=== PATIENT | male | born 1995 | race Asian ===

== ENCOUNTER 2023-08-17 06:21 | Emergency (ER) | payer OTHER, SELFPAY ==
[2023-08-17 06:33] VITALS: BP 122/78; PULSE 100; RESP 16; TEMP 36.4; O2SAT 98; BMI 27.4
[2023-08-17] MEDS: KETOROLAC 10 MG TABLET PO (07:02)
[2023-08-17] MEDS: FAMOTIDINE 20 MG TABLET PO (07:02)
[2023-08-17] MEDS: ONDANSETRON ODT 4 MG TAB PO (07:03)
--- NOTE | 2023-08-17 07:04 | ED_ITS ---
HPI - General Adult General Chief complaint: Abdominal Pain Stated complaint: lower abdominal pain Time Seen by Provider: 08/17/23 06:46 Source: patient Mode of arrival: ambulatory Limitations: no limitations History of Present Illness HPI narrative: 28-year-old male presents the emergency department with intermittent right upper quadrant and left lower quadrant abdominal pain for the past 3 days. Tends to happen while sitting and riding in a car. He has a son in the NICU at [place] and they have been traveling back frequently for visits. He had vomiting this morning but has been mildly nauseated the past couple of days. He has ongoing heartburn and has been a little worse than usual the last couple of days. He has been having some loose stools. Last bowel movement was last night. No eldon diarrhea. No bloody stools. No injury or trauma. Has not tried taking any medication to help with his symptoms. No fevers. No sick contacts. No prior history of abdominal surgeries. No cardiac or respiratory symptoms. No rash. No dysuria or hematuria. Past medical history benign per his report besides some exercise-induced asthma. He has albuterol as needed for this. No allergies. No prior abdominal surgeries. Nonsmoker. ROS notable for the GI/musculoskeletal symptoms as described above, otherwise denies times 12 systems. Related Data Home Medications Medication Instructions Recorded Confirmed albuterol 90 mcg/actuation aerosol mcg inhalation 08/17/23 inhaler Previous Rx's Medication Instructions Recorded ondansetron 4 mg disintegrating 4 mg PO Q8H PRN nausea and 08/17/23 tablet vomiting #14 tabs Allergies Allergy/AdvReac Type Severity Reaction Status Date / Time No Known Drug Allergies Allergy Verified 08/17/23 06:37 Exam Const: Vital Signs, click to edit/add: Vital Signs - 24 hr 08/17/23 06:33 Temperature 97.6 F Pulse Rate [Left P ulse Oximeter] 100 Respiratory Rate 16 Blood Pressure [Ri ght Upper Arm] 122/78 Pulse Oximetry 98 Oxygen Delivery Me thod Room Air Documenting provider has reviewed patient's vital signs: yes Common norm als: no apparent distress and alert General appearance: cooperative and well kempt HENMT: Common normals: normocephalic and oropharynx normal Head and scalp: normocephalic Face and sinus: normal facial exam Mouth: oral and palatal mucosa normal Eye: Common normals: conjunctivae normal General eye: normal appearance of both eyes Conjunctiva: conjunctiva(e) normal Neck & C-Spine: Common normals: full ROM and no lymphadenopathy Resp: Common normals: normal respiratory effort, no use of accessory muscles and clear to auscultation bilaterally Effort & inspection: able to speak in c omplete sentences Auscultation: clear to auscultation bilaterally Cardio: Common normals: regular rate, regular rhythm, S1 normal heart sound, S2 normal heart sound and peripheral pulses 2+ throughout Rate: regular rate Rhythm: regular rhythm Heart sounds: S1 normal and S2 normal Peripheral pulses: pulses 2+ throughout GI: Common normals: Normal to inspection, nondistended, normoactive bowel sounds present, soft to palpation, no hepatosplenomegaly and no masses Palpation: soft and no hepatosplenomegaly Other: Mildly tender to left lower quadrant, certainly no rebound tenderness or guarding. There was no tenderness to palpation of the right upper quadrant despite his reported pain : Common normals: no CVA tenderness Bladder/kidney exam: no CVA tenderness Back & Pelvis: Common normals: no CVA tenderness, thoracic and lumbar spine normal to inspection and no thoracic nor lumbar tenderness Extremity: Common normals: normal to inspection, full ROM and normal capillary refill Neuro: Sensorium/orientation: alert Speech: speech normal Motor exam: strength 5/5 throughout Psych: Appearance: well kempt Attitude: engaged Activity/motor behavior: appropriate eye contact Mood and affect: euthymic mood Insight: insight good Judgement: judgment good Skin: Common normals: no rashes or lesions noted General skin exam: no rashes or lesions noted Course Course ED Course: 28-year-old male with no significant tachycardia, hypotension or fever in the setting of intermittent crampy abdominal pain that is most likely consistent with a gastroenteritis. Vomiting today and loose stools without fever. Exam is reassuring. Will give oral Toradol, famotidine and Zofran. Check some basic labs to make sure that the kidneys, electrolytes, white count, CRP and lipase are normal. Anticipate discharge with oral Zofran and primary care follow-up if not improving. Reevaluation(s) Time of Reevaluation #1: 07:50 Reevaluation #1: Inform patient of normal results. He is feeling a little better with the medications. No vomiting or diarrhea while here in the ED. Is tolerating oral fluids. Suspect gastroenteritis. Labs do lean towards this as well. Recommend Zofran, prescription provided. Tylenol and ibuprofen p.r.n., Imodium p.r.n.. Alarm symptoms reviewed that would warrant re-evaluation. He verbalizes und erstanding and agreement of plan Vital Signs Vital signs: Initial Vital Signs Temperature 97.6 F 08/17/23 06:33 Temperature Source Temporal Artery Scan 08/17/23 06:33 Pulse Rate 100 08/17/23 06:33 Pulse Rhythm Regular 08/17/23 06:33 Respiratory Rate 16 08/17/23 06:33 Blood Pressure 122/78 08/17/23 06:33 Blood Pressure Mean 92 08/17/23 06:33 Blood Pressure Position Sitting 08/17/23 06:33 Pulse Oximetry 98 08/17/23 06:33 Oxygen Delivery Method Room Air 08/17/23 06:33 Vital Signs Temperature 97.6 F 08/17/23 06:33 Pulse Rate 100 08/17/23 06:33 Respiratory Rate 16 08/17/23 06:33 Blood Pressure 122/78 08/17/23 06:33 Pulse Oximetry 98 08/17/23 06:33 Oxygen Delivery Method Room Air 08/17/23 06:33 Temperature 97.6 F 08/17/23 06:33 Pulse Rate 100 08/17/23 06:33 Respiratory Rate 16 08/17/23 06:33 Blood Pressure 122/78 08/17/23 06:33 Pulse Oximetry 98 08/17/23 06:33 Oxygen Delivery Method Room Air 08/17/23 06:33 Medications Administered Medications: Discontinued Medications Generic Name Dose Route Start Last Admin Trade Name Arelis PRN Reason Stop Dose Admin Famotidine 20 mg 08/17/23 06:58 08/17/23 07:02 Famotidine 20 Mg Tablet PO 08/17/23 06:59 20 mg ONCE ONE Administration Ketorolac Tromethamine 10 mg 08/17/23 06:58 08/17/23 07:02 Ketorolac 10 Mg Tablet PO 08/17/23 06:59 10 mg ONCE ONE Administration Ondansetron HCl 4 mg 08/17/23 06:58 08/17/23 07:03 Ondansetron Odt 4 Mg Tab PO 08/17/23 06:59 4 mg ONCE ONE Administration Medical Decision Making Lab Data Lab results reviewed: Yes I reviewed the patient's lab results Lab results narrative: Labs reassuring. Labs: Lab Results 08/17/23 Range/Units 07:10 WBC 4.46 L (4.50-11.00) K/uL RBC 5.20 (4.30-5.90) m/uL Hgb 14.9 (13.5-17.5) gm/dL Hct 44.1 (37.0-53.0) % MCV 85 (80-100) fL MCH 29 (26-34) pg MCHC 34 (32-36) gm/dL RDW Coeff of Marlee 11.8 (11.5-15.5) % Plt Count 238 (140-440) K/uL Neut % (Auto) 72.6 H (42.0-72.0) % Lymph % (Auto) 20.0 (20-44) % [place] % (Auto) 5.2 (0.0-11.0) % Eos % (Auto) 1.6 (0.0-7.0) % Baso % (Auto) 0.4 (0.0-3.0) % Neut # (Auto) 3.20 (1.7-7.0) K/uL Lymph # (Auto) 0.90 (0.90-2.90) K/uL [place] # (Auto) 0.20 (0.00-0.90) K/UL Eos # (Auto) 0.10 (0.00-0.50) K/uL Baso # (Auto) 0.00 (0.00-0.30) K/uL Abs Immat Gran (auto) 0.00 (0.00-0.30) K/uL Imm/Tot Granulo (auto) 0.2 % Sodium 141 (135-149) mmol/L Potassium 4.0 (3.6-5.1) mmol/L Chloride 106 (96-114) mmol/L Carbon Dioxide 27 (20-32) mmol/L Anion Gap 8 (7-15) mEq/L BUN 14 (5-24) mg/dL Creatinine 0.9 (0.5-1.5) mg/dL Estimated Creat Clear 109.29 Estimated GFR 119 ml/min Glucose 104 (60-115) mg/dL Calcium 9.6 (8.4-10.6) mg/dL Total Bilirubin 0.4 (0.1-1.5) mg/dL AST 26 (12-35) U/L ALT 38 (4-50) U/L Alkaline Phosphatase 72 (40-150) U/L C-Reactive Protein < 0.5 L (0.5-1.0) mg/dL Total Protein 7.7 (6.0-8.3) g/dL Albumin 4.8 (3.3-5.0) g/dL Lipase 90 (23-300) U/L Discharge Plan Discharge Clinical Impression: Gastroenteritis Patient Disposition: Home w/ Parent or Adult Condition: Stable Instructions: Gastroenteritis (DC) Additional Instructions: As discussed, your labs are very reassuring. I suspect stomach flu, gastroenteritis. Use Tylenol and ibuprofen as needed for cramping and discomfort. Use [id number] Imodium if you have diarrhea. I have given you a prescription for Zofran, also known as ondansetron, a prescription anti nausea medicine. Use this up to 4 times daily as needed. Please stay home from the NICU today. Wash your hands frequently. Drink lots of fluids and slowly advanced solid foods as you are feeling better. Come back to emergency department if you have bloody stools, high fever or persistent abdominal pain. It is okay to treat any heartburn with [id number] omeprazole or famotidine. Activity Level: Activity as Tolerated Discharge Diet: Regular Prescriptions: New ondansetron 4 mg tablet,disintegrating 4 mg PO Q8H PRN (Reason: nausea and vomiting) Qty: 14 0RF No Action albuterol 90 mcg/actuation aerosol inhalation Follow Up/Referrals: Kwame Ramos MD [Staff Physician] - Stand Alone Forms: [employer] Info Instructions
[2023-08-17 07:20] LABS: Basophils Percent Auto 0.4 % (0.0-3.0); Eosinophils Percent Auto 1.6 % (0.0-7.0); Hematocrit 44.1 % (37.0-53.0); Hemoglobin* 14.9 gm/dL (13.5-17.5); Immature Granulocytes Pct Auto 0.2 %; Mean Corpuscular HGB Conc 34 gm/dL (32-36); Mean Corpuscular Hemoglobin 29 pg (26-34); Mean Corpuscular Volume 85 fL (80-100); Monocytes Percent Auto 5.2 % (0.0-11.0); Neutrophils Percent Auto 72.6 % (42.0-72.0); Platelet Count* 238 K/uL (140-440); RDW Coefficient of Variation % 11.8 % (11.5-15.5); White Blood Count* 4.46 K/uL (4.50-11.00)
[2023-08-17 07:24] LABS: Slide Review Reflex No
[2023-08-17 07:34] LABS: Albumin* 4.8 g/dL (3.3-5.0); Chloride* 106 mmol/L (96-114)
[2023-08-17 07:35] LABS: Sodium* 141 mmol/L (135-149)
[2023-08-17 07:37] LABS: Bilirubin Total* 0.4 mg/dL (0.1-1.5); Creatinine* 0.9 mg/dL (0.5-1.5); Est. Creatinine Clearance* 109.29; Estimated Glomerular Filt Rate 119 ml/min
[2023-08-17 07:38] LABS: Alanine Aminotransferase* 38 U/L (4-50); Alkaline Phosphatase* 72 U/L (40-150); Anion Gap 8 mEq/L (7-15); Aspartate Amino Transferase* 26 U/L (12-35); Blood Urea Nitrogen* 14 mg/dL (5-24); Calcium* 9.6 mg/dL (8.4-10.6); Carbon Dioxide* 27 mmol/L (20-32); Glucose* 104 mg/dL (60-115); Lipase* 90 U/L (23-300); Total Protein* 7.7 g/dL (6.0-8.3)
[2023-08-17 07:41] LABS: C Reactive Protein* < 0.5 mg/dL (0.5-1.0)
== END 2023-08-17 08:02 | disposition home or self-care (01) ==
PROVIDERS: Emergency Provider Family Medicine
DX: K52.9 Noninfective gastroenteritis and colitis, unspecified (principal)
CPT/HCPCS: 36415; 80053; 83690; 85025; 86140; 99283; 99284; A9270